=== PATIENT | male | born 1970 | race Caucasian/White ===

== ENCOUNTER 2019-05-03 12:37 | Emergency (ER) | payer OTHER ==
[~2019-05-03] VITALS: Ht 162.6 cm; Wt 93.4 kg
[2019-05-03 12:46] VITALS: Ht 162.6 cm; Wt 93.4 kg
[2019-05-03 13:08] LABS: BASOPHIL % 0.4 % (0-2); PLATELET COUNT 170 x10^3mcL (130-400); RED CELL DISTRIBUTION WIDTH 13.4 % (11.5-14.5)
[2019-05-03 13:20] LABS: CALCIUM 9.2 mg/dL (8.5-10.1); CARBON DIOXIDE 23.6 mmol/L (21-32); CHLORIDE SERUM 108 mmol/L (98-107); CREATININE SERUM 1.3 mg/dL (0.7-1.3); GFR1 > 60 mL/min; GLUCOSE SERUM 152 mg/dL (74-106); POTASSIUM SERUM 3.9 mmol/L (3.5-5.1); SODIUM SERUM 145 mmol/L (136-145)
[2019-05-03 13:22] VITALS: BP 108/71
[2019-05-03 13:25] LABS: ALKALINE PHOSPHATASE 92 U/L (46-116); ALT/SGPT 40 U/L (16-63); AST/SGOT 25 U/L (15-37); BILIRUBIN TOTAL 0.9 mg/dL (0.20-1.00); TOTAL PROTEIN, SERUM 7.7 g/dL (6.4-8.2)
== END 2019-05-03 13:30 | disposition short-term general hospital (02) ==
LOC: ED 12:37
PROVIDERS: Emergency Medicine
DX: S68.111A Complete traumatic metacarpophalangeal amputation of left index finger, initial encounter (principal); W27.0XXA Contact with workbench tool, initial encounter; Y93.89 Activity, other specified; Y92.89 Other specified places as the place of occurrence of the external cause; Y99.8 Other external cause status
CPT/HCPCS: 90715; J0690; J2270; J2405; J7030; Q0092